=== PATIENT | male | born 1945 | race Caucasian/White ===

== ENCOUNTER 2017-08-17 08:51 | Emergency (ER) | payer MEDICARE, OTHER ==
[~2017-08-17] VITALS: Ht 193 cm; Wt 118.0 kg
[2017-08-17] MEDS ORDERED: acetaminophen 325mg tablet PO ONE (09:20)
[2017-08-17] MEDS ORDERED: LIDOcaine 1% 30ml preserv. free vial IJ ONE (09:20)
[2017-08-17] MEDS ORDERED: fentaNYL/PF 50MCG/1 ML 2ML syringe IM ONE (10:40)
[2017-08-17 13:17] VITALS: BP 128/65
== END 2017-08-17 11:55 | disposition home or self-care (01) ==
LOC: ER 08:52
DX: S62.101A Fracture of unspecified carpal bone, right wrist, initial encounter for closed fracture (principal); Z88.8 Allergy status to other drugs, medicaments and biological substances; G89.29 Other chronic pain; W22.8XXA Striking against or struck by other objects, initial encounter; Y93.89 Activity, other specified; Y92.89 Other specified places as the place of occurrence of the external cause; Y99.8 Other external cause status
CPT/HCPCS: 25605; 72125; 73100; 73110; 96372; 99284; A4565; A6449; J3010; J3490; J7030

== ENCOUNTER 2017-08-21 13:06 | Outpatient (CLI) | payer MEDICARE, OTHER ==
[2017-08-21 13:06] VITALS: BP 121/78
[2017-08-21 13:54] VITALS: BP 121/78
== END 2017-08-21 14:10 | disposition home or self-care (01) ==
LOC: ORTHO 13:06
PROVIDERS: ATTEND Nurse Practitioner Family
DX: S52.501A Unspecified fracture of the lower end of right radius, initial encounter for closed fracture (principal); E11.42 Type 2 diabetes mellitus with diabetic polyneuropathy; E78.00 Pure hypercholesterolemia, unspecified; F41.9 Anxiety disorder, unspecified; G89.29 Other chronic pain; I10 Essential (primary) hypertension; K21.9 Gastro-esophageal reflux disease without esophagitis; Z79.84 Long term (current) use of oral hypoglycemic drugs; Z98.84 Bariatric surgery status; Z98.890 Other specified postprocedural states; X58.XXXA Exposure to other specified factors, initial encounter; Y93.89 Activity, other specified; Y92.89 Other specified places as the place of occurrence of the external cause; Y99.8 Other external cause status
CPT/HCPCS: 99215

== ENCOUNTER 2017-09-01 08:12 | Day surgery (SDC) | payer MEDICARE, OTHER ==
[2017-08-27 12:02] LABS: BASOPHILS % (AUTO) 0.7 % (0-1); EOSINOPHILS # (AUTO) 0.2 X10'3 (0-0.9); LYMPHOCYTES # (AUTO) 1.5 X10'3 (1.1-4.8); LYMPHOCYTES % (AUTO) 26.6 % (21-51); MEAN CORPUSCULAR HEMOGLOBIN 31.1 PG (27.0-31.0); MEAN CORPUSCULAR HGB CONC 34.6 % (33.0-36.5); MEAN CORPUSCULAR VOLUME 89.8 FL (78-98); MEAN PLATELET VOLUME 8.8 FL (7.4-10.4); MONOCYTES # (AUTO) 0.4 X10'3 (0-0.9); MONOCYTES % (AUTO) 7.4 % (2-12); NEUTROPHILS # (AUTO) 3.5 X10'3 (1.8-7.7); NEUTROPHILS % (AUTO) 62.3 % (42-75); PRE OP HEMOGLOBIN 14.5 g/dL (14.0-17.9); PRE OP PLATELET COUNT 279 X10'3 (140-440); RED BLOOD COUNT 4.68 X10'6 (4.70-6.10); RED CELL DISTRIBUTION WIDTH 14.8 % (11.5-14.5)
[2017-08-27 12:19] LABS: ALBUMIN 3.5 G/DL (3.4-5.0); ALBUMIN/GLOBULIN RATIO 0.9 (1.1-1.5); ALKALINE PHOSPHATASE 79 IU/L (46-116); BLOOD UREA NITROGEN 18 MG/DL (7-18); BUN/CREATININE RATIO 24.7 (5.4-32.0); CHLORIDE 104 MMOL/L (99-107); CREATININE 0.73 MG/DL (0.60-1.10); PRE OP ALT 22 U/L (30-65); PRE OP ANION GAP 9 (8-16); PRE OP AST 14 U/L (10-37); PRE OP BILIRUB, TOTAL 0.8 MG/DL (0.0-1.0); PRE OP GLUCOSE 128 MG/DL (70-104); PRE OP POTASSIUM 4.4 MMOL/L (3.4-5.1); PRE OP SODIUM 139 MMOL/L (135-145); TOTAL PROTEIN 7.2 G/DL (6.4-8.2); eGFR > 90 ML/MIN
[2017-08-27 12:23] LABS: HEMOGLOBIN A1C 5.7 % (4.5-6.2)
[2017-09-01] VITALS (11 sets, daily range): BP systolic 98–158; BP diastolic 47–81
[~2017-09-01] VITALS: Ht 193 cm; Wt 117.6 kg
[~2017-09-01 08:12] MED LIST: ACET-812 PO; BUPR150T8 PO; CELE-193 PO; CHOL100046 PO; CYA500T PO; DIPH25CA83 PO; DULO-31 PO; ESOM40CA PO; FERR325T28 PO; FLUT16SP2 BOTHNARES; FOLI1TAB16 PO; GABA-532 PO; METF500T PO; OSC500T PO; PHEN30CA2 PO; PRAV40TA3 PO; VITC500T PO; cefazolin/dext.iso 2gm/50ml 50 ML IV ONE; famotidine 20mg tablet PO ONE; ringers solution, lacted 1,000 ML IV SCH; vancomycin inj 1,500 MG in normal saline 300ml IV soln IV ONE
[2017-09-01] MEDS ORDERED: BUPIVAcaine/PF 2.5 mg/ml (0.25%) 30ml vial ONE (10:14)
[2017-09-01] MEDS ORDERED: ROPIVAcaine 0.5% (5mg/ml) 30ml vial ONE (10:18)
[2017-09-01] MEDS ORDERED: cloNIDine hcl/PF 100mcg/ml inj ONE (10:18)
[2017-09-01] MEDS ORDERED: sevoflurane 250ml liquid IH ONE (11:17)
[2017-09-01] MEDS ORDERED: fentaNYL/PF 50MCG/1 ML 2ML syringe ONE (11:19)
[2017-09-01] MEDS ORDERED: midazolam 2 mg/2 ml injection ONE (11:19)
[2017-09-01] MEDS ORDERED: ePHEDrine 50MG/ML INJ. ONE (11:42)
[2017-09-01] MEDS ORDERED: propofol inj 20 ML IV ONE (11:42)
[2017-09-01] MEDS ORDERED: ringers solution, lacted 1,000 ML IV SCH (13:07)
[2017-09-01] MEDS ORDERED: morphine 2 MG/ML inj. syringe IV PRN ×2 (13:10)
[2017-09-01] MEDS ORDERED: meperidine/PF 50mg/ml syringe IV PRN ×3 (13:10)
[2017-09-01] MEDS ORDERED: ondansetron/PF 4mg/2ml inj IV PRN (13:10)
[2017-09-01] MEDS ORDERED: proCHLORperazine 10 MG/2 ml inj IV PRN (13:10)
== END 2017-09-01 14:25 | disposition home or self-care (01) ==
LOC: PAS 08:12
PROVIDERS: ATTEND Orthopaedic Surgery
DX: S52.551A Other extraarticular fracture of lower end of right radius, initial encounter for closed fracture (principal); S52.511A Displaced fracture of right radial styloid process, initial encounter for closed fracture; K21.9 Gastro-esophageal reflux disease without esophagitis; F41.9 Anxiety disorder, unspecified; E11.9 Type 2 diabetes mellitus without complications; G89.29 Other chronic pain; M19.90 Unspecified osteoarthritis, unspecified site; F32.9 Major depressive disorder, single episode, unspecified; Z98.42 Cataract extraction status, left eye; Z98.41 Cataract extraction status, right eye; Z87.891 Personal history of nicotine dependence; Z98.84 Bariatric surgery status; Z91.048 Other nonmedicinal substance allergy status; Z79.1 Long term (current) use of non-steroidal anti-inflammatories (NSAID); Z79.84 Long term (current) use of oral hypoglycemic drugs; Z79.899 Other long term (current) drug therapy; Z91.018 Allergy to other foods; Z88.8 Allergy status to other drugs, medicaments and biological substances; Z98.890 Other specified postprocedural states; X58.XXXA Exposure to other specified factors, initial encounter; Y93.89 Activity, other specified; Y92.89 Other specified places as the place of occurrence of the external cause; Y99.8 Other external cause status
CPT/HCPCS: 25607; 36415; 71046; 80053; 82948; 83036; 85025; A6449; C1713; J0690; J0735; J2250; J2704; J2795; J3010; J3370; J3490; J7120; A7000

== ENCOUNTER 2017-09-11 10:07 | Outpatient (CLI) | payer MEDICARE, OTHER ==
[~2017-09-11 10:07] MED LIST changes: -cefazolin/dext.iso 2gm/50ml 50 ML IV ONE; -famotidine 20mg tablet PO ONE; -ringers solution, lacted 1,000 ML IV SCH; -vancomycin inj 1,500 MG in normal saline 300ml IV soln IV ONE
[2017-09-11 10:09] VITALS: BP 140/70
== END 2017-09-11 12:05 | disposition home or self-care (01) ==
LOC: ORTHO 10:07
PROVIDERS: ATTEND Nurse Practitioner Family
DX: S52.501D Unspecified fracture of the lower end of right radius, subsequent encounter for closed fracture with routine healing (principal); E11.9 Type 2 diabetes mellitus without complications; M19.90 Unspecified osteoarthritis, unspecified site; G89.29 Other chronic pain; Z88.8 Allergy status to other drugs, medicaments and biological substances; W01.0XXD Fall on same level from slipping, tripping and stumbling without subsequent striking against object, subsequent encounter
CPT/HCPCS: 29075; 99214; A4590; A6449

== ENCOUNTER 2017-10-02 10:11 | Outpatient (CLI) | payer MEDICARE, OTHER ==
[2017-10-02 10:13] VITALS: BP 113/76
== END 2017-10-02 11:05 | disposition home or self-care (01) ==
LOC: ORTHO 10:11
PROVIDERS: ATTEND Nurse Practitioner Family
DX: S52.501D Unspecified fracture of the lower end of right radius, subsequent encounter for closed fracture with routine healing (principal); S52.601D Unspecified fracture of lower end of right ulna, subsequent encounter for closed fracture with routine healing; G89.29 Other chronic pain; E11.9 Type 2 diabetes mellitus without complications; Z88.8 Allergy status to other drugs, medicaments and biological substances; W01.0XXD Fall on same level from slipping, tripping and stumbling without subsequent striking against object, subsequent encounter
CPT/HCPCS: 29260; 73100; 99213

== ENCOUNTER 2017-10-07 14:09 | Outpatient (CLI) | payer MEDICARE, OTHER ==
[2017-10-07 14:05] VITALS: BP 106/66
== END 2017-10-07 14:30 | disposition home or self-care (01) ==
LOC: ORTHO 14:09
PROVIDERS: ATTEND Nurse Practitioner Family
DX: S52.501D Unspecified fracture of the lower end of right radius, subsequent encounter for closed fracture with routine healing (principal); S52.611G Displaced fracture of right ulna styloid process, subsequent encounter for closed fracture with delayed healing; G89.29 Other chronic pain; E11.9 Type 2 diabetes mellitus without complications; W01.0XXD Fall on same level from slipping, tripping and stumbling without subsequent striking against object, subsequent encounter; Z88.8 Allergy status to other drugs, medicaments and biological substances
CPT/HCPCS: 99212

== ENCOUNTER 2017-10-23 14:06 | Outpatient (CLI) | payer MEDICARE, OTHER ==
[2017-10-23 14:03] VITALS: BP 121/84
== END 2017-10-23 14:49 | disposition home or self-care (01) ==
LOC: ORTHO 14:06
PROVIDERS: ATTEND Nurse Practitioner Family
DX: S52.501D Unspecified fracture of the lower end of right radius, subsequent encounter for closed fracture with routine healing (principal); S52.601G Unspecified fracture of lower end of right ulna, subsequent encounter for closed fracture with delayed healing; E11.9 Type 2 diabetes mellitus without complications; G89.29 Other chronic pain; Z88.3 Allergy status to other anti-infective agents; W01.0XXD Fall on same level from slipping, tripping and stumbling without subsequent striking against object, subsequent encounter
CPT/HCPCS: 73100; 99213

== ENCOUNTER 2017-12-10 10:15 | Outpatient (CLI) | payer MEDICARE, OTHER | END 2017-12-10 10:43 | disposition home or self-care (01) | LOC: ORTHO 10:15 | PROVIDERS: ATTEND Nurse Practitioner Family | DX: S52.501D Unspecified fracture of the lower end of right radius, subsequent encounter for closed fracture with routine healing (principal); S52.601D Unspecified fracture of lower end of right ulna, subsequent encounter for closed fracture with routine healing; E11.9 Type 2 diabetes mellitus without complications; G89.29 Other chronic pain; M54.9 Dorsalgia, unspecified; M19.90 Unspecified osteoarthritis, unspecified site; Z88.8 Allergy status to other drugs, medicaments and biological substances; X58.XXXD Exposure to other specified factors, subsequent encounter | CPT/HCPCS: 73100; 99213 ==

== ENCOUNTER 2018-02-16 15:20 | Outpatient (CLI) | payer MEDICARE, OTHER ==
[2018-02-16 15:23] VITALS: BP 148/84
== END 2018-02-16 16:02 | disposition home or self-care (01) ==
LOC: ORTHO 15:20
PROVIDERS: ATTEND Nurse Practitioner Family
DX: S52.591D Other fractures of lower end of right radius, subsequent encounter for closed fracture with routine healing (principal); S52.601D Unspecified fracture of lower end of right ulna, subsequent encounter for closed fracture with routine healing; E11.9 Type 2 diabetes mellitus without complications; G89.29 Other chronic pain; Z87.891 Personal history of nicotine dependence; Z88.8 Allergy status to other drugs, medicaments and biological substances; Z98.84 Bariatric surgery status; Z79.899 Other long term (current) drug therapy; W19.XXXD Unspecified fall, subsequent encounter
CPT/HCPCS: 73100; 99212

== ENCOUNTER 2018-05-24 11:33 | Outpatient (CLI) | payer MEDICARE, OTHER ==
[2018-05-24 11:32] VITALS: BP 134/80
== END 2018-05-24 11:53 | disposition home or self-care (01) ==
LOC: ORTHO 11:33
PROVIDERS: ATTEND Nurse Practitioner Family
DX: S52.591D Other fractures of lower end of right radius, subsequent encounter for closed fracture with routine healing (principal); S52.691D Other fracture of lower end of right ulna, subsequent encounter for closed fracture with routine healing; E11.9 Type 2 diabetes mellitus without complications; M19.90 Unspecified osteoarthritis, unspecified site; Z98.890 Other specified postprocedural states; Z91.048 Other nonmedicinal substance allergy status; Z88.8 Allergy status to other drugs, medicaments and biological substances; W22.8XXD Striking against or struck by other objects, subsequent encounter
CPT/HCPCS: 73110; 99213

== ENCOUNTER 2018-10-02 08:31 | Emergency (ER) | payer MEDICARE, OTHER ==
[~2018-10-02] VITALS: Ht 193 cm; Wt 102.0 kg
[2018-10-02] MEDS ORDERED: normal saline 1000ML IV soln IV ONE (11:45)
[2018-10-02] MEDS ORDERED: pantoprazole IV 80 MG in normal saline 100ml IV soln 100 ML IV ONE (11:45)
[2018-10-02] MEDS ORDERED: morphine 4 MG/ML inj SYRINge IV PRN ×2 (11:45→14:00)
[2018-10-02] MEDS ORDERED: pantoprazole 40 MG vial IV ONE (11:45)
[2018-10-02] MEDS ORDERED: metoclopramide 5 mg/ml inj IV ONE (11:45)
--- NOTE | 2018-10-02 12:08 | NUR ---
PATIENT TO CT.
[2018-10-02 12:24] LABS: CLARITY,URINE CLEAR (Clear); COLOR,URINE YELLOW (Yellow); GLUCOSE, URINE NEGATIVE (Neg); KETONES,URINE TRACE mg/dl (Neg); LEUKOCYTE ESTERASE ,URINE NEGATIVE (Neg); NITRITES, URINE NEGATIVE (Neg); OCCULT BLOOD,URINE NEGATIVE (Neg); PH,URINE >=9.0 (4.8-8.0); PROTEIN,URINE NEGATIVE (Neg); UA COLLECTION TYPE CLN CATCH MIDSTREAM; UROBILINOGEN,URINE 0.2 E.U/dL (0.2-1.0)
[2018-10-02 12:46] LABS: BASOPHILS # (AUTO) 0.1 X10'3 (0-0.2); BASOPHILS % (AUTO) 0.8 % (0-1); EOSINOPHILS % (AUTO) 0.6 % (0-6); HEMATOCRIT 37.6 % (42.0-52.0); HEMOGLOBIN 12.1 g/dl (14.0-17.9); LYMPHOCYTES # (AUTO) 1.6 X10'3 (1.1-4.8); LYMPHOCYTES % (AUTO) 21.7 % (21-51); MEAN CORPUSCULAR HEMOGLOBIN 27.8 PG (27.0-31.0); MEAN CORPUSCULAR HGB CONC 32.2 g/dL (33.0-36.5); MEAN CORPUSCULAR VOLUME 86.2 FL (78-98); MEAN PLATELET VOLUME 8.5 FL (7.4-10.4); MONOCYTES # (AUTO) 0.5 X10'3 (0-0.9); MONOCYTES % (AUTO) 6.2 % (2-12); NEUTROPHILS # (AUTO) 5.4 X10'3 (1.8-7.7); NEUTROPHILS % (AUTO) 70.7 % (42-75); PLATELET COUNT 300 X10'3 (140-440); RED BLOOD COUNT 4.36 X10'6 (4.70-6.10); RED CELL DISTRIBUTION WIDTH 15.5 % (11.5-14.5); WHITE BLOOD COUNT 7.6 X10'3 (4.5-11.0)
[2018-10-02] MEDS ORDERED: piperacillin/tazo 3.375gm/50ml 50 ML IV ONE (12:55)
[2018-10-02 12:59] LABS: INR 1.7 INR; PROTHROMBIN TIME 16.7 SECONDS (9.0-12.0)
[2018-10-02 13:03] LABS: ALANINE AMINOTRANSFERASE 20 U/L (12-78); ALKALINE PHOSPHATASE 102 IU/L (46-116); ANION GAP 7 (8-16); ASPARTATE AMINO TRANSFERASE 13 U/L (10-37); BILIRUBIN,TOTAL 0.4 MG/DL (0.1-1.0); BLOOD UREA NITROGEN 16 MG/DL (7-18); BUN/CREATININE RATIO 21.9 (5.4-32.0); CALCIUM 8.8 MG/DL (8.5-10.1); CHLORIDE 107 MMOL/L (99-107); CREATININE 0.73 MG/DL (0.60-1.10); GLUCOSE 151 MG/DL (70-104); SODIUM 141 MMOL/L (135-145); TOTAL CARBON DIOXIDE 26.7 MMOL/L (24-32); eGFR > 90 ML/MIN
[2018-10-02 13:19] LABS: OCCULT BLOOD STOOL POSITIVE (Neg)
[2018-10-02] MEDS ORDERED: normal saline 1000ml 1,000 ML IV SCH (14:00)
[2018-10-02] MEDS ORDERED: magnesium 4gm in 100ml NS 100 ML IV PRN (14:00)
[2018-10-02] MEDS ORDERED: magnesium Cl slow-release 64mg tablet PO PRN (14:00)
[2018-10-02] MEDS ORDERED: magnesium 2GM in 50ml NS 50 ML IV PRN (14:00)
[2018-10-02] MEDS ORDERED: potassium Cl 20 mEq SR tablet PO PRN ×2 (14:00)
[2018-10-02] MEDS ORDERED: docusate sod 100mg capsule PO PRN (14:00)
[2018-10-02] MEDS ORDERED: potassium Cl 40MEQ/NS 500ml 500 ML IV PRN ×2 (14:00)
[2018-10-02] MEDS ORDERED: ondansetron/PF 4mg/2ml inj IV PRN (14:00)
[2018-10-02] MEDS ORDERED: acetaminophen 325mg tablet PO PRN ×2 (14:00)
[2018-10-02] MEDS ORDERED: HYDROcodone/acetaminophen 5mg/325mg tablet PO PRN (14:00)
[2018-10-02] MEDS ORDERED: dextrose 50%-water 50ml dispensing syringe IV PRN ×2 (14:20)
[2018-10-02] MEDS ORDERED: glucagon, human recombinant 1mg kit SUBCUT PRN (14:20)
[2018-10-02] MEDS ORDERED: insulin Lispro (HumaLOG) vial - multi-dose SQ SCH (14:20)
[2018-10-02] MEDS ORDERED: dextrose ORAL solution 15 GM/59 ML bottle PO PRN ×2 (14:20)
[2018-10-02] MEDS ORDERED: MESSAGE TO PHARMACY PO ONE (14:20)
[2018-10-02 15:12] LABS: HEMOGLOBIN A1C 6.2 % (4.5-6.2)
[2018-10-02] MEDS ORDERED: piperacillin/tazo 3.375gm/50ml 50 ML IV SCH (16:00)
[2018-10-02 16:40] VITALS: BP 125/58
[2018-10-02] MEDS ORDERED: insulin glargine (Lantus) pen - multi-dose SQ SCH (21:00)
[2018-10-03] MEDS ORDERED: pantoprazole 40mg Tablet.DR PO SCH (07:30)
[2018-10-03] MEDS ORDERED: K and/or MAG REPLACEMENT MC SCH (08:00)
[2018-10-04] MEDS ORDERED: METF-950 PO (12:48)
[2018-10-04] MEDS ORDERED: MONT10TA24 PO (12:48)
[2018-10-04] MEDS ORDERED: ACET-2119 PO (12:48)
[2018-10-04] MEDS ORDERED: DULO60CA64 PO (12:48)
[2018-10-04] MEDS ORDERED: CYAN100021 PO (12:48)
[2018-10-04] MEDS ORDERED: BUPR150T26 PO (12:48)
[2018-10-04] MEDS ORDERED: CALC-1051 PO (12:49)
[2018-10-04] MEDS ORDERED: PRAV40TA3 PO (12:49)
[2018-10-04] MEDS ORDERED: ESOM40CA49 PO (12:49)
[2018-10-04] MEDS ORDERED: CHOL10008 PO (12:51)
[2018-10-04] MEDS ORDERED: GABA-532 PO (12:52)
[2018-10-04] MEDS ORDERED: FLUT16SP2 BOTHNARES (12:53)
[2018-10-04] MEDS ORDERED: FERR325T32 PO (12:54)
== END 2018-10-02 19:28 | disposition left against medical advice (07) ==
LOC: ER 08:32 → UNDOADMIN 14:00 → ED HOLD 14:00 → UNDODISIN 19:28
DX: K57.32 Diverticulitis of large intestine without perforation or abscess without bleeding (principal); D64.9 Anemia, unspecified; I95.1 Orthostatic hypotension; E87.2 Acidosis; I48.91 Unspecified atrial fibrillation; E78.00 Pure hypercholesterolemia, unspecified; I10 Essential (primary) hypertension; K21.9 Gastro-esophageal reflux disease without esophagitis; G89.29 Other chronic pain; M19.90 Unspecified osteoarthritis, unspecified site; E11.42 Type 2 diabetes mellitus with diabetic polyneuropathy; Z79.01 Long term (current) use of anticoagulants; Z98.84 Bariatric surgery status; Z79.899 Other long term (current) drug therapy; Z88.8 Allergy status to other drugs, medicaments and biological substances
CPT/HCPCS: 36415; 71045; 74176; 80053; 81003; 82140; 82272; 83036; 83605; 84145; 85025; 85610; 86885; 86900; 86901; 87040; 93005; 96361; 96365; 96375; 99285; C9113; J2270; J2543; J2765; J7030; G0378; J1815

== ENCOUNTER 2018-10-04 10:48 | Inpatient (IN) | payer MEDICARE, OTHER | END 2018-10-12 13:45 | LOC: ER 10:48 → ED HOLD 13:07 → SUR 3N 21:52 | DX: K57.32 Diverticulitis of large intestine without perforation or abscess without bleeding (principal); D62 Acute posthemorrhagic anemia; E44.1 Mild protein-calorie malnutrition; K57.30 Diverticulosis of large intestine without perforation or abscess without bleeding; E11.42 Type 2 diabetes mellitus with diabetic polyneuropathy ==

== ENCOUNTER 2020-08-23 09:34 | Outpatient (CLI) | payer MEDICARE, OTHER ==
[~2020-08-23 09:34] MED LIST changes: -ACET-812 PO; +BUPR150T26 PO; -BUPR150T8 PO; +CALC-1051 PO; -CELE-193 PO; -CHOL100046 PO; +CHOL10008 PO; -CYA500T PO; +CYAN100021 PO; -DIPH25CA83 PO; -DULO-31 PO; +DULO60CA65 PO; -ESOM40CA PO; +ESOM40CA49 PO; -FERR325T28 PO; +FERR325T32 PO; -FOLI1TAB16 PO; -METF500T PO; +MONT10TA32 PO; -OSC500T PO; -PHEN30CA2 PO; -VITC500T PO
[2020-08-23 10:26] LABS: BASOPHILS % (AUTO) 0.7 % (0-1); EOSINOPHILS # (AUTO) 0.2 X10'3 (0-0.9); EOSINOPHILS % (AUTO) 2.2 % (0-6); HEMATOCRIT 42.7 % (42.0-52.0); HEMOGLOBIN 13.8 g/dl (14.0-17.9); LYMPHOCYTES # (AUTO) 1.7 X10'3 (1.1-4.8); LYMPHOCYTES % (AUTO) 25.4 % (21-51); MEAN CORPUSCULAR HEMOGLOBIN 27.9 PG (27.0-31.0); MEAN CORPUSCULAR HGB CONC 32.2 g/dL (33.0-36.5); MEAN CORPUSCULAR VOLUME 86.6 FL (78-98); MEAN PLATELET VOLUME 9.2 FL (7.4-10.4); MONOCYTES # (AUTO) 0.5 X10'3 (0-0.9); MONOCYTES % (AUTO) 7.9 % (2-12); NEUTROPHILS # (AUTO) 4.4 X10'3 (1.8-7.7); NEUTROPHILS % (AUTO) 63.8 % (42-75); PLATELET COUNT 246 X10'3 (140-440); RED BLOOD COUNT 4.93 X10'6 (4.70-6.10); RED CELL DISTRIBUTION WIDTH 16.2 % (11.5-14.5); WHITE BLOOD COUNT 6.8 X10'3 (4.5-11.0)
[2020-08-23 10:54] LABS: ALANINE AMINOTRANSFERASE 24 U/L (12-78); ALBUMIN 3.5 G/DL (3.4-5.0); ALBUMIN/GLOBULIN RATIO 1.1 (1.1-1.5); ALKALINE PHOSPHATASE 66 IU/L (46-116); ANION GAP 8 (8-16); ASPARTATE AMINO TRANSFERASE 17 U/L (10-37); BILIRUBIN,TOTAL 0.3 MG/DL (0.1-1.0); BLOOD UREA NITROGEN 29 MG/DL (7-18); BUN/CREATININE RATIO 36.3 (5.4-32.0); CALCIUM 8.9 MG/DL (8.5-10.1); CHLORIDE 107 MMOL/L (99-107); GLUCOSE 127 MG/DL (70-104); POTASSIUM 4.5 MMOL/L (3.5-5.1); SODIUM 141 MMOL/L (135-145); TOTAL PROTEIN 6.6 G/DL (6.4-8.2); eGFR > 90 ML/MIN
[2020-08-23] MEDS ORDERED: iohexol 350MG/ML 100ml bottle IV ONE (10:59)
== END 2020-08-23 23:59 | disposition home or self-care (01) ==
LOC: 64 CT 09:34
PROVIDERS: ATTEND Internal Medicine Cardiovascular Disease
DX: I35.0 Nonrheumatic aortic (valve) stenosis (principal); R06.02 Shortness of breath; I65.29 Occlusion and stenosis of unspecified carotid artery; I65.9 Occlusion and stenosis of unspecified precerebral artery; I25.10 Atherosclerotic heart disease of native coronary artery without angina pectoris; I51.7 Cardiomegaly
CPT/HCPCS: 36415; 71275; 80053; 85025; Q9967

== ENCOUNTER 2020-12-16 18:58 | Inpatient (IN) | payer MEDICARE, OTHER ==
[~2020-12-16] VITALS: Ht 193 cm; Wt 114.5 kg
[~2020-12-16 18:58] MED LIST changes: +ACET-2971 PO; +ASCO500C17 PO; +ASPI-611 PO; -CHOL10008 PO; +CLOP75TA34 PO; +DIPH-735 PO; +EMPA10TA PO; -ESOM40CA49 PO; +FOLI0.4T14 PO; +HYDR-3972 PO; +METF-438 PO; -MONT10TA32 PO; +MULT-1141 PO; +PANT40TA54 PO
[2020-12-16 19:32] LABS: BASOPHILS # (AUTO) 0.1 X10'3 (0-0.2); EOSINOPHILS # (AUTO) 0.1 X10'3 (0-0.9); EOSINOPHILS % (AUTO) 2.2 % (0-6); HEMATOCRIT 35.6 % (42.0-52.0); HEMOGLOBIN 11.8 g/dl (14.0-17.9); LYMPHOCYTES # (AUTO) 0.6 X10'3 (1.1-4.8); LYMPHOCYTES % (AUTO) 10.5 % (21-51); MEAN CORPUSCULAR HEMOGLOBIN 30.6 PG (27.0-31.0); MEAN CORPUSCULAR HGB CONC 33.1 g/dL (33.0-36.5); MEAN CORPUSCULAR VOLUME 92.3 FL (78-98); MEAN PLATELET VOLUME 9.1 FL (7.4-10.4); MONOCYTES # (AUTO) 0.5 X10'3 (0-0.9); MONOCYTES % (AUTO) 7.8 % (2-12); NEUTROPHILS # (AUTO) 4.5 X10'3 (1.8-7.7); NEUTROPHILS % (AUTO) 78.5 % (42-75); PLATELET COUNT 226 X10'3 (140-440); RED BLOOD COUNT 3.86 X10'6 (4.70-6.10); RED CELL DISTRIBUTION WIDTH 15.8 % (11.5-14.5); WHITE BLOOD COUNT 5.8 X10'3 (4.5-11.0)
[2020-12-16] MEDS ORDERED: EMPA25TA PO (19:37)
[2020-12-16] MEDS ORDERED: OCUVITE PO (19:37)
[2020-12-16] MEDS ORDERED: IBUP-24 PO (19:37)
[2020-12-16] MEDS ORDERED: LOP25T PO (19:37)
[2020-12-16] MEDS ORDERED: MONT10TA32 PO (19:37)
[2020-12-16] MEDS ORDERED: DAPA10TA PO (19:37)
[2020-12-16] MEDS ORDERED: ACAR100T PO (19:37)
[2020-12-16] MEDS ORDERED: CYAN3000 SL (19:37)
[2020-12-16] MEDS ORDERED: [UNRECOGNIZED DRUG - OTHER] (19:37)
[2020-12-16] MEDS ORDERED: FEXO-62 PO (19:37)
[2020-12-16] MEDS ORDERED: TROL141. TOP (19:37)
[2020-12-16 19:48] LABS: ALANINE AMINOTRANSFERASE 10 U/L (12-78); ALBUMIN 2.8 G/DL (3.4-5.0); ALBUMIN/GLOBULIN RATIO 1.1 (1.1-1.5); ALKALINE PHOSPHATASE 64 IU/L (46-116); ANION GAP 8 (8-16); ASPARTATE AMINO TRANSFERASE 9 U/L (10-37); BILIRUBIN,TOTAL 0.4 MG/DL (0.1-1.0); BLOOD UREA NITROGEN 21 MG/DL (7-18); BUN/CREATININE RATIO 24.7 (5.4-32.0); CALCIUM 7.9 MG/DL (8.5-10.1); CHLORIDE 109 MMOL/L (99-107); CREATININE 0.85 MG/DL (0.60-1.10); GLUCOSE 237 MG/DL (70-104); POTASSIUM 4.2 MMOL/L (3.5-5.1); SODIUM 144 MMOL/L (135-145); TOTAL CARBON DIOXIDE 26.8 MMOL/L (24-32); TOTAL PROTEIN 5.4 G/DL (6.4-8.2); eGFR 88 ML/MIN
[2020-12-16] MEDS ORDERED: temazepam 15mg capsule PO PRN (21:00)
[2020-12-16] MEDS ORDERED: pantoprazole 40MG/NS 100ML BAG 100 ML IV ONE (21:50)
[2020-12-16] MEDS ORDERED: acetaminophen 325mg tablet PO PRN (23:15)
[2020-12-16] MEDS ORDERED: ondansetron/PF 4mg/2ml inj IV PRN (23:15)
[2020-12-16] MEDS ORDERED: HYDROcodone/acetaminophen 5mg/325mg tablet PO PRN (23:15)
[2020-12-16] MEDS ORDERED: mag hydrox/Alum hydrox/simeth 30ml oral suspension PO PRN (23:15)
[2020-12-16] MEDS ORDERED: morphine 2 MG/ML inj. syringe IV PRN (23:15)
[2020-12-16] MEDS ORDERED: magnesium 2GM in 50ml NS 50 ML IV PRN (23:15)
[2020-12-16] MEDS ORDERED: magnesium hydroxide 30ml (MOM) UD suspension PO PRN (23:15)
[2020-12-16] MEDS ORDERED: magnesium 4gm in 100ml NS 100 ML IV PRN (23:15)
[2020-12-16] MEDS ORDERED: potassium Cl 40MEQ/1/2NS 520ml 520 ML IV PRN ×2 (23:15)
[2020-12-16] MEDS ORDERED: magnesium Cl slow-release 64mg tablet PO PRN (23:15)
[2020-12-16] MEDS ORDERED: potassium Cl 20 mEq SR tablet PO PRN ×2 (23:15)
[2020-12-16] MEDS: normal saline 1000ml 1,000 ML IV SCH (23:23)
[2020-12-16] MEDS: acetaminophen 325mg tablet PO PRN (23:26)
[2020-12-17] VITALS (7 sets, daily range): BP systolic 86–103; BP diastolic 51–62
--- NOTE | 2020-12-17 00:05 | NUR ---
PT HAD LARGE bloody BM, new depends, new linens applied. lab called and stated type and screen needs to be sent out.
--- NOTE | 2020-12-17 01:48 | NUR ---
medium sized bloody BM. pt cleaned. pt refusing to get to bedside commode with RN's help. pt states his is okay laying in bed while having BM.
--- NOTE | 2020-12-17 02:17 | NUR ---
cleaned another large bloody BM.
--- NOTE | 2020-12-17 02:21 | NUR ---
pt has small red wound to bottocks. open skin. 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
--- NOTE | 2020-12-17 02:22 | NUR ---
pt refusing to get to bedside commode. states "i'm okay with laying in my poop in bed". called Dr. Brooke for rectal tube placement.
[2020-12-17] MEDS: pantoprazole 40MG/NS 100ML BAG 100 ML IV SCH ×4 (03:12→16:56)
--- NOTE | 2020-12-17 03:14 | NUR ---
rectal tube placed per verbal order from hospitalist
[2020-12-17] MEDS ORDERED: METO-395 PO (03:17)
[2020-12-17] MEDS ORDERED: ACAR50TA4 PO (03:25)
[2020-12-17] MEDS ORDERED: CALC-1205 PO (03:31)
[2020-12-17] MEDS ORDERED: fluticasone nasal spray 16GM bottle NS PRN (06:20)
[2020-12-17] MEDS: K and/or MAG REPLACEMENT MC SCH (07:50)
[2020-12-17] MEDS: DAPAGLIFLOZIN 10MG TABLET PO SCH (08:00)
[2020-12-17] MEDS: metoprolol succinate 25mg (24-HOUR) SR. Tablet PO SCH (08:00)
[2020-12-17 09:59] LABS: BASOPHILS % (AUTO) 0.7 % (0-1); EOSINOPHILS % (AUTO) 0.9 % (0-6); HEMATOCRIT 29.5 % (42.0-52.0); HEMOGLOBIN 9.8 g/dl (14.0-17.9); LYMPHOCYTES # (AUTO) 0.8 X10'3 (1.1-4.8); LYMPHOCYTES % (AUTO) 15.6 % (21-51); MEAN CORPUSCULAR HEMOGLOBIN 30.6 PG (27.0-31.0); MEAN CORPUSCULAR HGB CONC 33.1 g/dL (33.0-36.5); MEAN CORPUSCULAR VOLUME 92.6 FL (78-98); MEAN PLATELET VOLUME 9.1 FL (7.4-10.4); MONOCYTES # (AUTO) 0.5 X10'3 (0-0.9); MONOCYTES % (AUTO) 9.6 % (2-12); NEUTROPHILS # (AUTO) 3.7 X10'3 (1.8-7.7); NEUTROPHILS % (AUTO) 73.2 % (42-75); PLATELET COUNT 179 X10'3 (140-440); RED BLOOD COUNT 3.18 X10'6 (4.70-6.10)
[2020-12-17] MEDS ORDERED: dextrose ORAL solution 15 GM/59 ML bottle PO PRN ×2 (10:20)
[2020-12-17] MEDS ORDERED: glucagon, human recombinant 1mg kit SUBCUT PRN (10:20)
[2020-12-17] MEDS ORDERED: MESSAGE TO PHARMACY PO ONE (10:20)
[2020-12-17] MEDS ORDERED: insulin Lispro (HumaLOG) vial - multi-dose SQ SCH (10:20)
[2020-12-17] MEDS ORDERED: dextrose 50%-water 50ml dispensing syringe IV PRN ×2 (10:20)
[2020-12-17 10:24] LABS: ALBUMIN 2.6 G/DL (3.4-5.0); ANION GAP 9 (8-16); BLOOD UREA NITROGEN 23 MG/DL (7-18); BUN/CREATININE RATIO 45.1 (5.4-32.0); CALCIUM 7.6 MG/DL (8.5-10.1); CHLORIDE 109 MMOL/L (99-107); CREATININE 0.51 MG/DL (0.60-1.10); GLUCOSE 154 MG/DL (70-104); MAGNESIUM 1.8 MG/DL (1.5-2.4); POTASSIUM 3.9 MMOL/L (3.5-5.1); SODIUM 141 MMOL/L (135-145); TOTAL CARBON DIOXIDE 22.9 MMOL/L (24-32); eGFR > 90 ML/MIN
[2020-12-17] MEDS: gabapentin 300mg capsule PO SCH (10:41)
[2020-12-17] MEDS: folic acid 1mg tablet PO SCH (10:42)
[2020-12-17] MEDS: buPROPion SR 150mg tablet PO SCH (10:43)
[2020-12-17] MEDS: loratadine 10mg tablet PO SCH (10:44)
--- NOTE | 2020-12-17 10:56 | NUR ---
called pharmacy spoke to [facility]. jody chopra only removed one duloxetine 30 mg from [facility] instead of two
[2020-12-17] MEDS ORDERED: duloxetine 30mg CAPSULE.DR PO ONE (11:00)
[2020-12-17] MEDS: normal saline 1000ml 1,000 ML IV SCH ×2 (11:03→19:31)
[2020-12-17] MEDS: duloxetine 30mg CAPSULE.DR PO SCH (11:16)
--- NOTE | 2020-12-17 11:23 | NUR ---
spoke to dr rodriguez regarding holding toprol, ok to hold, informed of gigantic blood stool with clots and mostly marcela blood and currently with a bloody stool with clots medium sized, orders for cbc in 4 hours, he is aware of 2 gram hemoglobin drop and does not want to transfuse patient now : bp stable
--- NOTE | 2020-12-17 13:02 | NUR ---
SPOKE TO DR SALDAÑA: AWARE OF CURRENT BP AND CURRENT AND CONTINUED ACTIVE RECTAL BLEEDING, DOES NOT WANT A CBC NOW, DOES NOT WANT TO TRANSFUSE NOW
[2020-12-17] MEDS ORDERED: fentaNYL/PF 50MCG/1 ML 2ML syringe ONE (15:14)
[2020-12-17] MEDS ORDERED: LIDOcaine Viscous 15ml cup ONE (15:15)
[2020-12-17] MEDS ORDERED: MIDAZolam 1 MG/ML 5ML VIAL ONE (15:15)
--- NOTE | 2020-12-17 15:26 | NUR ---
PRIMARY RN COVERED FOR BREAK, PATIENT AT GI LAB.
[2020-12-17] MEDS ORDERED: PEG 3350/Na sulf,bicarb,Cl/KCl oral sol 4 liter bottle PO ONE (16:20)
--- NOTE | 2020-12-17 16:45 | NUR ---
PT PLACED ON HOSPITAL BED. Addendum: 12/17/20 at 1645 by ANGELA PT BACK FROM LAB
[2020-12-17 17:27] LABS: BASOPHILS % (AUTO) 0.7 % (0-1); EOSINOPHILS # (AUTO) 0.1 X10'3 (0-0.9); EOSINOPHILS % (AUTO) 2.7 % (0-6); LYMPHOCYTES % (AUTO) 27.7 % (21-51); MEAN CORPUSCULAR HEMOGLOBIN 31.2 PG (27.0-31.0); MEAN CORPUSCULAR HGB CONC 33.5 g/dL (33.0-36.5); MEAN CORPUSCULAR VOLUME 93.2 FL (78-98); MEAN PLATELET VOLUME 9.2 FL (7.4-10.4); MONOCYTES # (AUTO) 0.4 X10'3 (0-0.9); NEUTROPHILS # (AUTO) 2.1 X10'3 (1.8-7.7); NEUTROPHILS % (AUTO) 58.9 % (42-75); PLATELET COUNT 141 X10'3 (140-440); RED BLOOD COUNT 1.78 X10'6 (4.70-6.10); RED CELL DISTRIBUTION WIDTH 15.5 % (11.5-14.5); WHITE BLOOD COUNT 3.5 X10'3 (4.5-11.0)
[2020-12-17 17:33] LABS: HEMOGLOBIN 5.6 g/dl (14.0-17.9)
[2020-12-17 17:34] LABS: HEMATOCRIT 16.6 % (42.0-52.0)
--- NOTE | 2020-12-17 19:29 | NUR ---
Pt c/o having BM and urinating in bed. Pt provided bed bath. Linens changed. No other complaints voiced or reported.
--- NOTE | 2020-12-17 19:48 | NUR ---
FIRST UNIT OF PRBC FINISHED ON PT. LAB AT BEDSIDE TO RECHECK HGB
[2020-12-17 19:59] LABS: HEMATOCRIT 28.4 % (42.0-52.0); HEMOGLOBIN 9.6 g/dl (14.0-17.9); MEAN CORPUSCULAR HEMOGLOBIN 30.5 PG (27.0-31.0); MEAN CORPUSCULAR HGB CONC 33.7 g/dL (33.0-36.5); MEAN CORPUSCULAR VOLUME 90.7 FL (78-98); PLATELET COUNT 174 X10'3 (140-440); RED BLOOD COUNT 3.13 X10'6 (4.70-6.10); WHITE BLOOD COUNT 5.5 X10'3 (4.5-11.0)
[2020-12-17] MEDS: pravastatin 40mg tablet PO SCH (21:00)
[2020-12-17] MEDS: insulin glargine (Lantus) pen - multi-dose SQ SCH (21:00)
[2020-12-17 21:56] LABS: HEMOGLOBIN 9.2 g/dl (14.0-17.9); MEAN CORPUSCULAR HEMOGLOBIN 30.9 PG (27.0-31.0); MEAN CORPUSCULAR VOLUME 90.8 FL (78-98); MEAN PLATELET VOLUME 8.8 FL (7.4-10.4); PLATELET COUNT 178 X10'3 (140-440); RED BLOOD COUNT 2.98 X10'6 (4.70-6.10); RED CELL DISTRIBUTION WIDTH 15.8 % (11.5-14.5); WHITE BLOOD COUNT 4.7 X10'3 (4.5-11.0)
[2020-12-18] MEDS: gabapentin 300mg capsule PO SCH ×3 (00:05→21:14)
[2020-12-18] MEDS: pantoprazole 40MG/NS 100ML BAG 100 ML IV SCH ×6 (00:06→19:43)
[2020-12-18] MEDS: montelukast 10mg tablet PO SCH ×2 (00:06→21:13)
[2020-12-18] MEDS: K and/or MAG REPLACEMENT MC SCH ×3 (00:07→20:00)
[2020-12-18] MEDS: normal saline 1000ml 1,000 ML IV SCH ×2 (01:46→17:10)
[2020-12-18 02:40] LABS: BASOPHILS % (AUTO) 0.7 % (0-1); EOSINOPHILS # (AUTO) 0.2 X10'3 (0-0.9); EOSINOPHILS % (AUTO) 3.9 % (0-6); HEMATOCRIT 26.4 % (42.0-52.0); LYMPHOCYTES # (AUTO) 1.1 X10'3 (1.1-4.8); MEAN CORPUSCULAR HEMOGLOBIN 30.7 PG (27.0-31.0); MEAN CORPUSCULAR HGB CONC 34.2 g/dL (33.0-36.5); MEAN CORPUSCULAR VOLUME 89.8 FL (78-98); MONOCYTES # (AUTO) 0.6 X10'3 (0-0.9); MONOCYTES % (AUTO) 11.1 % (2-12); NEUTROPHILS % (AUTO) 61.3 % (42-75); PLATELET COUNT 172 X10'3 (140-440); RED BLOOD COUNT 2.94 X10'6 (4.70-6.10); RED CELL DISTRIBUTION WIDTH 15.7 % (11.5-14.5)
[2020-12-18 02:45] LABS: ALBUMIN 2.4 G/DL (3.4-5.0); ANION GAP 9 (8-16); BLOOD UREA NITROGEN 24 MG/DL (7-18); BUN/CREATININE RATIO 38.1 (5.4-32.0); CALCIUM 7.3 MG/DL (8.5-10.1); CHLORIDE 108 MMOL/L (99-107); CREATININE 0.63 MG/DL (0.60-1.10); GLUCOSE 171 MG/DL (70-104); MAGNESIUM 1.6 MG/DL (1.5-2.4); POTASSIUM 3.9 MMOL/L (3.5-5.1); SODIUM 140 MMOL/L (135-145); TOTAL CARBON DIOXIDE 23.4 MMOL/L (24-32); eGFR > 90 ML/MIN
[2020-12-18 07:33] VITALS: BP 133/67
[2020-12-18] MEDS: folic acid 1mg tablet PO SCH (08:00)
[2020-12-18] MEDS: buPROPion SR 150mg tablet PO SCH (08:00)
[2020-12-18] MEDS: duloxetine 30mg CAPSULE.DR PO SCH (08:00)
[2020-12-18] MEDS: DAPAGLIFLOZIN 10MG TABLET PO SCH (08:00)
[2020-12-18] MEDS: loratadine 10mg tablet PO SCH (08:00)
[2020-12-18] MEDS: metoprolol succinate 25mg (24-HOUR) SR. Tablet PO SCH (08:00)
[2020-12-18 08:45] LABS: HEMATOCRIT 26.1 % (42.0-52.0); HEMOGLOBIN 8.9 g/dl (14.0-17.9); MEAN CORPUSCULAR HEMOGLOBIN 30.8 PG (27.0-31.0); MEAN CORPUSCULAR HGB CONC 34.2 g/dL (33.0-36.5); MEAN PLATELET VOLUME 9.2 FL (7.4-10.4); PLATELET COUNT 166 X10'3 (140-440); RED BLOOD COUNT 2.89 X10'6 (4.70-6.10); RED CELL DISTRIBUTION WIDTH 15.7 % (11.5-14.5); WHITE BLOOD COUNT 4.4 X10'3 (4.5-11.0)
--- NOTE | 2020-12-18 08:58 | NUR ---
I spoke to Elizabeth ROUSE from GI lab, she asked me if patient is cleared yet I told her that patient had dark chocolate like stool and that patient consumed about 75% of the Golytely container already. She asked to instruct patient to finish the Golytely and hopefully we can get the colonoscopy done at 3:00pm today. Patient instructed to drink more Golytely
[2020-12-18 10:00] VITALS: BP 134/69
[2020-12-18] MEDS ORDERED: PEG 3350/Na sulf,bicarb,Cl/KCl oral sol 4 liter bottle PO ONE (10:15)
--- NOTE | 2020-12-18 13:44 | NUR ---
I called Elizabeth ROUSE from GI lab about the BM is now like coffee color, she said it may not work as it still not cleared. She said she will contact the doctor to see if it can get done otherwise it will be tomorrow.
[2020-12-18 14:06] LABS: HEMATOCRIT 25.6 % (42.0-52.0); HEMOGLOBIN 8.7 g/dl (14.0-17.9); MEAN CORPUSCULAR HEMOGLOBIN 30.6 PG (27.0-31.0); MEAN CORPUSCULAR VOLUME 90.1 FL (78-98); MEAN PLATELET VOLUME 9.1 FL (7.4-10.4); PLATELET COUNT 176 X10'3 (140-440); RED BLOOD COUNT 2.84 X10'6 (4.70-6.10); RED CELL DISTRIBUTION WIDTH 15.8 % (11.5-14.5); WHITE BLOOD COUNT 3.9 X10'3 (4.5-11.0)
--- NOTE | 2020-12-18 14:51 | NUR ---
Per Elizabeth ROUSE from GI lab, the colonoscopy will not be done today but tomorrow, no time specified. Patient was notified and encouraged to continue taking his Golytely.
--- NOTE | 2020-12-18 18:39 | NUR ---
Problems reprioritized. Patient report given, questions answered & plan of care reviewed with Shonda ROUSE.
--- NOTE | 2020-12-18 18:40 | NUR ---
Patient in room ORTHO 4012. I have received report from LJ ROUSE and had the opportunity to ask questions and assume patient care.
[2020-12-18 18:42] LABS: HEMATOCRIT 25.5 % (42.0-52.0); HEMOGLOBIN 8.7 g/dl (14.0-17.9); MEAN CORPUSCULAR HEMOGLOBIN 30.7 PG (27.0-31.0); MEAN CORPUSCULAR HGB CONC 34.1 g/dL (33.0-36.5); MEAN PLATELET VOLUME 9.2 FL (7.4-10.4); PLATELET COUNT 176 X10'3 (140-440); RED BLOOD COUNT 2.83 X10'6 (4.70-6.10); RED CELL DISTRIBUTION WIDTH 16.1 % (11.5-14.5)
[2020-12-18 19:00] VITALS: BP 123/78
--- NOTE | 2020-12-18 19:00 | NUR ---
PATIENT REFUSED TO HAVE HIS REGULAR INSULIN, MET PROTOCOL ON LEVEL 2. SAID "I HAVEN'T HAD ANY INSULIN IN MY LIFE, SO I'M NOT TAKING IT NOW".
[2020-12-18] MEDS: insulin glargine (Lantus) pen - multi-dose SQ SCH (21:00)
[2020-12-18] MEDS: pravastatin 40mg tablet PO SCH (21:13)
--- NOTE | 2020-12-18 21:35 | NUR ---
PATIENT REFUSED TO HAVE HIS LANTUS INSULIN INJECTION. HS BLOOD SUGAR 156.
[2020-12-18 22:34] LABS: HEMATOCRIT 22.5 % (42.0-52.0); HEMOGLOBIN 7.6 g/dl (14.0-17.9); MEAN CORPUSCULAR HEMOGLOBIN 30.4 PG (27.0-31.0); MEAN CORPUSCULAR HGB CONC 33.7 g/dL (33.0-36.5); MEAN CORPUSCULAR VOLUME 90.2 FL (78-98); MEAN PLATELET VOLUME 9.2 FL (7.4-10.4); PLATELET COUNT 171 X10'3 (140-440); WHITE BLOOD COUNT 3.9 X10'3 (4.5-11.0)
[2020-12-18] MEDS: acetaminophen 325mg tablet PO PRN (22:48)
[2020-12-19] VITALS (8 sets, daily range): BP systolic 122–148; BP diastolic 63–78
[2020-12-19] MEDS: pantoprazole 40MG/NS 100ML BAG 100 ML IV SCH ×4 (00:36→16:00)
[2020-12-19] MEDS: normal saline 1000ml 1,000 ML IV SCH ×2 (03:04→11:12)
--- NOTE | 2020-12-19 06:00 | NUR ---
Patient in room ORTHO 4012. I have received report from JERRI GUTHRIE RN and had the opportunity to ask questions and assume patient care.
--- NOTE | 2020-12-19 06:30 | NUR ---
Problems reprioritized. Patient report given, questions answered & plan of care reviewed with AM RN.
[2020-12-19 06:43] LABS: BASOPHILS % (AUTO) 1.3 % (0-1); EOSINOPHILS # (AUTO) 0.3 X10'3 (0-0.9); EOSINOPHILS % (AUTO) 8.6 % (0-6); HEMATOCRIT 22.3 % (42.0-52.0); HEMOGLOBIN 7.6 g/dl (14.0-17.9); LYMPHOCYTES # (AUTO) 1.5 X10'3 (1.1-4.8); LYMPHOCYTES % (AUTO) 42.1 % (21-51); MEAN CORPUSCULAR HEMOGLOBIN 30.9 PG (27.0-31.0); MEAN CORPUSCULAR HGB CONC 34.2 g/dL (33.0-36.5); MEAN CORPUSCULAR VOLUME 90.5 FL (78-98); MEAN PLATELET VOLUME 9.1 FL (7.4-10.4); MONOCYTES # (AUTO) 0.4 X10'3 (0-0.9); MONOCYTES % (AUTO) 10.3 % (2-12); NEUTROPHILS # (AUTO) 1.4 X10'3 (1.8-7.7); NEUTROPHILS % (AUTO) 37.7 % (42-75); PLATELET COUNT 173 X10'3 (140-440); RED BLOOD COUNT 2.47 X10'6 (4.70-6.10); WHITE BLOOD COUNT 3.6 X10'3 (4.5-11.0)
[2020-12-19 07:07] LABS: ALBUMIN 2.4 G/DL (3.4-5.0); ANION GAP 9 (8-16); BLOOD UREA NITROGEN 9 MG/DL (7-18); BUN/CREATININE RATIO 15.8 (5.4-32.0); CALCIUM 7.1 MG/DL (8.5-10.1); CHLORIDE 112 MMOL/L (99-107); CREATININE 0.57 MG/DL (0.60-1.10); GLUCOSE 139 MG/DL (70-104); MAGNESIUM 1.7 MG/DL (1.5-2.4); SODIUM 146 MMOL/L (135-145); TOTAL CARBON DIOXIDE 25.2 MMOL/L (24-32); eGFR > 90 ML/MIN
[2020-12-19 07:21] LABS: POTASSIUM 2.8 MMOL/L (3.5-5.1)
[2020-12-19] MEDS: loratadine 10mg tablet PO SCH (08:54)
[2020-12-19] MEDS: gabapentin 300mg capsule PO SCH (08:54)
[2020-12-19] MEDS: metoprolol succinate 25mg (24-HOUR) SR. Tablet PO SCH (08:54)
[2020-12-19] MEDS: folic acid 1mg tablet PO SCH (08:54)
[2020-12-19] MEDS: DAPAGLIFLOZIN 10MG TABLET PO SCH (08:54)
[2020-12-19] MEDS: duloxetine 30mg CAPSULE.DR PO SCH (08:54)
[2020-12-19] MEDS: buPROPion SR 150mg tablet PO SCH (08:54)
[2020-12-19] MEDS: K and/or MAG REPLACEMENT MC SCH (08:55)
--- NOTE | 2020-12-19 11:45 | NUR ---
DM Consult: Pt A1C 7.0 appropriate given age. Addendum: 12/19/20 at [address] Amended: Links added.
[2020-12-19] MEDS ORDERED: fentaNYL/PF 50MCG/1 ML 2ML syringe ONE (13:09)
[2020-12-19] MEDS ORDERED: MIDAZolam 1 MG/ML 5ML VIAL ONE (13:09)
--- NOTE | 2020-12-19 16:50 | NUR ---
PT RECEIVED DC INSTRUCTIONS AND VERBALIZED UNDERSTANDING OF DC INSTRUCTIONS. IV AND HEART MONITOR WAS REMOVED AND PT WAS WHEELED TO PRIVATE VEHICLE IN ZERO DISTRESS
== END 2020-12-19 16:50 | disposition home health service (06) | DRG 378 ==
LOC: ER 18:58 → ED HOLD 23:12 → ORTHO 4S 12-18 07:15
PROVIDERS: ADMIT Internal Medicine; ATTEND Internal Medicine
PROC: 0DJ08ZZ Inspection of Upper Intestinal Tract, Via Natural or Artificial Opening Endoscopic (ICD-10-PCS; principal; 2020-12-17)
PROC: 30233N1 Transfusion of Nonautologous Red Blood Cells into Peripheral Vein, Percutaneous Approach (ICD-10-PCS; 2020-12-17)
PROC: 0DJD8ZZ Inspection of Lower Intestinal Tract, Via Natural or Artificial Opening Endoscopic (ICD-10-PCS; 2020-12-19)
DX: K57.31 Diverticulosis of large intestine without perforation or abscess with bleeding (principal); D62 Acute posthemorrhagic anemia; D68.9 Coagulation defect, unspecified; E11.42 Type 2 diabetes mellitus with diabetic polyneuropathy; E78.00 Pure hypercholesterolemia, unspecified; E78.5 Hyperlipidemia, unspecified; F32.9 Major depressive disorder, single episode, unspecified; F41.9 Anxiety disorder, unspecified; G89.29 Other chronic pain; K21.9 Gastro-esophageal reflux disease without esophagitis; M54.9 Dorsalgia, unspecified; R63.0 Anorexia; K63.5 Polyp of colon; I10 Essential (primary) hypertension; M19.90 Unspecified osteoarthritis, unspecified site; I25.10 Atherosclerotic heart disease of native coronary artery without angina pectoris; I48.91 Unspecified atrial fibrillation; K22.8 Other specified diseases of esophagus; Z79.02 Long term (current) use of antithrombotics/antiplatelets; Z79.84 Long term (current) use of oral hypoglycemic drugs; Z87.19 Personal history of other diseases of the digestive system; Z95.0 Presence of cardiac pacemaker; Z98.84 Bariatric surgery status; Z68.30 Body mass index [BMI] 30.0-30.9, adult; Z88.8 Allergy status to other drugs, medicaments and biological substances
CPT/HCPCS: 36415; 36430; 43235; 45378; 80048; 80053; 82948; 83036; 83735; 83880; 84132; 84484; 85025; 85027; 85610; 86885; 86900; 86901; 86902; 86920; 86922; 87081; 96365; 99152; 99153; 99285; A4620; C9113; G0378; J1815; J2250; J2270; J3010; J3480; J7030; J7040; P9016

== ENCOUNTER 2021-06-02 11:45 | Emergency (ER) | payer MEDICARE, OTHER ==
[~2021-06-02] VITALS: Ht 193 cm; Wt 106.4 kg
[~2021-06-02 11:45] MED LIST changes: +ACAR50TA4 PO; -ASPI-611 PO; -CALC-1051 PO; +CALC-1205 PO; +DAPA10TA PO; -DIPH-735 PO; -EMPA10TA PO; +EMPA25TA PO; +FEXO-62 PO; +METO-395 PO; +MONT-40 PO; -MULT-1141 PO; +OCUVITE PO; +TROL141. TOP
[2021-06-02] MEDS ORDERED: ketorolac trometh. 30mg/ml inj. IM ONE (12:05)
--- NOTE | 2021-06-02 14:24 | NUR ---
CALLED FOR TRANSFER AND FAXED FACE SHEET OVER TO [facility] @[id number]
[2021-06-02] MEDS ORDERED: ondansetron/PF 4mg/2ml inj IV ONE (15:05)
[2021-06-02] MEDS ORDERED: morphine 4 MG/ML inj SYRINge IV ONE ×2 (15:05→18:50)
[2021-06-02 17:08] LABS: BASOPHILS # (AUTO) 0.1 X10'3 (0-0.2); BASOPHILS % (AUTO) 0.5 % (0-1); EOSINOPHILS % (AUTO) 0.2 % (0-6); HEMATOCRIT 35.7 % (42.0-52.0); HEMOGLOBIN 11.8 g/dl (14.0-17.9); LYMPHOCYTES # (AUTO) 1.4 X10'3 (1.1-4.8); LYMPHOCYTES % (AUTO) 14.1 % (21-51); MEAN CORPUSCULAR HEMOGLOBIN 29.4 PG (27.0-31.0); MEAN CORPUSCULAR HGB CONC 33.1 g/dL (33.0-36.5); MEAN CORPUSCULAR VOLUME 88.6 FL (78-98); MEAN PLATELET VOLUME 8.9 FL (7.4-10.4); MONOCYTES # (AUTO) 0.8 X10'3 (0-0.9); MONOCYTES % (AUTO) 8.3 % (2-12); NEUTROPHILS # (AUTO) 7.6 X10'3 (1.8-7.7); NEUTROPHILS % (AUTO) 76.9 % (42-75); PLATELET COUNT 252 X10'3 (140-440); RED BLOOD COUNT 4.03 X10'6 (4.70-6.10); WHITE BLOOD COUNT 9.9 X10'3 (4.5-11.0)
[2021-06-02 17:16] LABS: PARTIAL THROMBOPLASTIN TIME 24 SECONDS (22-32)
[2021-06-02 17:18] LABS: ALANINE AMINOTRANSFERASE 19 U/L (12-78); ALBUMIN 3.1 G/DL (3.4-5.0); ALBUMIN/GLOBULIN RATIO 1.1 (1.1-1.5); ALKALINE PHOSPHATASE 56 IU/L (46-116); ANION GAP 8 (8-16); ASPARTATE AMINO TRANSFERASE 12 U/L (10-37); BILIRUBIN,TOTAL 0.6 MG/DL (0.1-1.0); BLOOD UREA NITROGEN 22 MG/DL (7-18); BUN/CREATININE RATIO 24.7 (5.4-32.0); CALCIUM 8.3 MG/DL (8.5-10.1); CHLORIDE 106 MMOL/L (99-107); CREATININE 0.89 MG/DL (0.60-1.10); GLUCOSE 131 MG/DL (70-104); SODIUM 139 MMOL/L (135-145); TOTAL CARBON DIOXIDE 25.1 MMOL/L (24-32); TOTAL PROTEIN 5.8 G/DL (6.4-8.2); eGFR 83 ML/MIN
[2021-06-02 17:27] LABS: ANISOCYTOSIS 2+; ELLIPTOCYTES FEW; LARGE PLATELETS FEW; PLATELET ESTIMATE NORMAL
[2021-06-03] MEDS ORDERED: morphine 4 MG/ML inj SYRINge IV ONE ×2 (00:35→08:40)
[2021-06-03] MEDS ORDERED: LIDOcaine 2% 10ml TOPICAL JELLY (Urojet) TP ONE (00:35)
[2021-06-03 10:19] VITALS: BP 100/65
--- NOTE | 2021-06-03 10:21 | NUR ---
REPORT GIVEN TO DEBORA ROUSE [facility]
== END 2021-06-03 08:00 | disposition admitted as inpatient to this hospital (09) ==
LOC: ER 11:46
DX: S72.492A Other fracture of lower end of left femur, initial encounter for closed fracture (principal); Z20.822 Contact with and (suspected) exposure to COVID-19; I11.9 Hypertensive heart disease without heart failure; E78.00 Pure hypercholesterolemia, unspecified; K21.9 Gastro-esophageal reflux disease without esophagitis; E11.9 Type 2 diabetes mellitus without complications; F41.9 Anxiety disorder, unspecified; G89.29 Other chronic pain; M54.9 Dorsalgia, unspecified; Z88.8 Allergy status to other drugs, medicaments and biological substances; Z88.1 Allergy status to other antibiotic agents; W18.39XA Other fall on same level, initial encounter; Y93.89 Activity, other specified; Y92.89 Other specified places as the place of occurrence of the external cause; Y99.8 Other external cause status
CPT/HCPCS: 29515; 36415; 73552; 73564; 73700; 80053; 82948; 85008; 85025; 85610; 85730; 87635; 93005; 96372; 96374; 96375; 96376; 99291; 99292; C9803; J1885; J2270; J2405